=== PATIENT | male | born 1975 | race Caucasian/White ===

== ENCOUNTER 2017-08-01 01:15 | Emergency (ER) | payer OTHER ==
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
[2017-08-01 07:28] VITALS: BP 130/89; PULSE 81; TEMP 97.5; BMI 29.8
== END 2017-08-01 06:39 | disposition home or self-care (01) ==
LOC: JER 01:15
DX: S09.8XXA Other specified injuries of head, initial encounter (principal); R51 Headache; M54.5 Low back pain; V49.59XA Passenger injured in collision with other motor vehicles in traffic accident, initial encounter; Y92.488 Other paved roadways as the place of occurrence of the external cause; Y93.89 Activity, other specified; Y99.8 Other external cause status
CPT/HCPCS: 70450-TC; 72125-TC; 99281-25